=== PATIENT | male | born 1965 | race Caucasian/White ===

== ENCOUNTER 2019-09-16 10:40 | Emergency (ER) | payer OTHER ==
[~2019-09-16] VITALS: Ht 180.3 cm; Wt 81.7 kg
[2019-09-16] MEDS ORDERED: SYNTHROID175 MCG PO (11:14)
[2019-09-16 11:30] LABS: INFLUENZA A ANTIGEN Negative (Negative); INFLUENZA B ANTIGEN Negative (Negative)
[2019-09-16 11:37] LABS: ABSOLUTE BASOPHILS 0.1 thou/uL (0.0-0.2); ABSOLUTE EOSINOPHILS 0.1 thou/uL (0.0-0.7); ABSOLUTE LYMPHOCYTES 1.2 thou/uL (0.8-5.3); ABSOLUTE MONOCYTES 0.9 thou/uL (0.0-1.2); ABSOLUTE NEUTROPHILS 3.2 thou/uL (1.6-8.1); BASOPHILS 1.1 %; EOSINOPHILS 1.4 %; HEMOGLOBIN 16.2 gm/dL (14.0-18.0); LYMPHOCYTES 21.6 %; MCH 32.2 pg (26.0-34.0); MCHC 35.3 g/dL (28.0-37.0); MCV 91.1 fL (80.0-100.0); MONOCYTES 16.2 %; MPV 8.4 fl. (7.2-11.1); NUCLEATED RBCS 0 /100WBC; PLATELET COUNT* 214 thou/uL (150-400); POLYS 59.7 %; RBC 5.05 mil/uL (4.50-6.00); RDW-CV 13.6 % (10.5-14.5); WBC 5.4 thou/uL (4.0-11.0)
[2019-09-16 11:57] LABS: CALCIUM 8.5 mg/dL (8.5-10.1); CREATININE 1.3 mg/dL (0.6-1.3); POTASSIUM 4.8 mmol/L (3.5-5.1)
[2019-09-16 12:07] LABS: ALBUMIN 3.6 g/dL (3.4-5.0); TOTAL BILIRUBIN 0.3 mg/dL (<0.1-1.0); TOTAL PROTEIN 6.7 g/dL (6.4-8.2)
[2019-09-16] MEDS ORDERED: TYLENOL WITH CO1 TA1 PO (12:12)
[2019-09-16] MEDS ORDERED: ZPAK PO (12:12)
[2019-09-16] MEDS ORDERED: PROAIR HFA8.5 GM INH (12:12)
[2019-09-16] MEDS ORDERED: TESSALON PERLE100 MG PO (12:12)
[2019-09-16 12:36] VITALS: BP 120/83
--- NOTE | 2019-09-16 17:02 | EKG ---
[place] [address] ELECTROCARDIOGRAM REPORT Name: KATRIN GAINES Room: [facility]#: [id number] Admission: 09/16/19 Attend Phys: Discharge: 09/16/19 Date of : 67 Date of Service: 09/16/19 1126 Report #: [id number] THIS REPORT FOR: //name// [facility] ED Test Date: 2019-09-16 Test Time: 11:26:09 Pat Name: KATRIN GAINES Department: Room: Gender: [place] [employer]: : 1965 Requested By: Kenneth Valdes Order Number: [id number] MD: Diego Benton Measurements Intervals [place] Rate: 85 P: 21 [place]: 143 QRS: 62 QRSD: 98 T: 40 QT: 358 QTc: 426 Interpretive Statements Sinus rhythm No previous ECG available for comparison Electronically Signed On 09-16-2019 17:00:54 CDT by Diego Benton [email or web address] <ELECTRONICALLY SIGNED> By: Diego Benton MD, [facility] 09/16/19 1700 1126 1126 Diego Benton MD, FACC /EPI
== END 2019-09-16 12:30 | disposition home or self-care (01) ==
LOC: M.ERS 10:40
PROVIDERS: Physician Assistant
DX: J22 Unspecified acute lower respiratory infection (principal); E03.9 Hypothyroidism, unspecified